=== PATIENT | female | born 1950 | race Caucasian/White ===

== ENCOUNTER → 2016-09-06 | Outpatient (CLI) | payer MEDICARE ==
--- NOTE | 2016-09-06 13:17 | MM ---
Reason for exam: screening (asymptomatic). Last mammogram was performed 1 year ago. History: Patient is postmenopausal. Taking progesterone for 2 years 6 months. Physical Findings: A clinical breast exam by your physician is recommended on an annual basis and results should be correlated with mammographic findings. MG Screening Mammo w CAD Bilateral CC and MLO view(s) were taken. Prior study comparison: September 01, 2015, bilateral MG 3d screening mammo w/cad. February 19, 2014, left breast MG work up mamm w CAD LT. The breast tissue is heterogeneously dense. This may lower the sensitivity of mammography. There is no discrete abnormality. No significant changes when compared with prior studies. ASSESSMENT: Negative, BI-RAD 1 RECOMMENDATION: Routine screening mammogram of both breasts in 1 year.
== END | disposition home or self-care (01) ==
LOC: RADMAMWWP 08:51
PROVIDERS: ATTEND Internal Medicine
DX: Z12.31 Encounter for screening mammogram for malignant neoplasm of breast (principal)

== ENCOUNTER → 2016-09-06 | Outpatient (CLI) | payer MEDICARE ==
--- NOTE | 2016-09-06 09:42 | US ---
EXAMINATION TYPE: US thyroid st tissue head/neck DATE OF EXAM: 09/06/2016 COMPARISON: 09/01/2015 CLINICAL HISTORY: E04.2 Nontoxic multinodular goiter, F/U. GLAND SIZE: Right Lobe: 4.3 x 1.4 x 1.3 cm Overall Parenchyma: homogenous Left Lobe: 4.1 x 1.0 x 1.5 cm Overall Parenchyma: homogeneous Isthmus Thickness: 0.3 cm NODULES RIGHT: # of nodules measured on right: 3 1. 1.0 X 0.6 x 0.8 cm isoechoic solid nodule at the mid pole with poorly defined margins. This nod ule is wider than tall and shows intranodular vascularity. Prior size: 1.0 x 0.8 x 0.5 cm 2. 0.3 X 0.2 x 0.3 cm hypoechoic solid nodule at the upper pole with well-defined margins. This nod ule is wider than tall and shows no intranodular vascularity. Prior size: 0.3 x 0.2 x 0.2 cm 3. 0.4 X 0.3 x 0.4 cm anechoic cystic nodule at the lower pole with well-defined margins. This nodu le is taller than wide and shows no intranodular vascularity. Prior size: 0.4 x 0.3 x 0.5 cm LEFT: # of nodules measured on left: 3 1. 0.5 X 0.3 x 0.3 cm isoechoic solid nodule at the upper pole with poorly defined margins. This n odule is wider than tall and shows no intranodular vascularity. Prior size: 0.4 x 0.3 x 0.3 cm 2. 0.4 X 0.3 x 0.3 cm isoechoic solid nodule at the mid pole with poorly defined margins. This nodu le is wider than tall and shows intranodular vascularity. Prior size: 0.5 x 0.3 x 0.5 cm 3. 0.4 X 0.3 x 0.4 cm hypoechoic solid nodule at the lower pole with well-defined margin. This nodu le is wider than tall and shows intranodular vascularity. Prior size: 0.4 x 0.3 x 0.3 cm ISTHMUS: # of nodules measured in the isthmus: 0 Bilateral neck scanned, no evidence of lymphadenopathy. IMPRESSION: 1. Stable multinodular goiter
== END | disposition home or self-care (01) ==
LOC: RADUSWWP 08:48
PROVIDERS: ATTEND Internal Medicine Endocrinology, Diabetes & Metabolism
DX: E04.2 Nontoxic multinodular goiter (principal)
CPT/HCPCS: 76536

== ENCOUNTER 2016-11-17 18:07 | Emergency (ER) | payer MEDICARE ==
[2016-11-17] MEDS ORDERED: DIPH,PERTUS(ACELL)TETVAC-LF 0.5 ML VIAL IM ONE (18:48)
[2016-11-17] MEDS ORDERED: TOPICAL SKIN ADHESIVE 1 EACH AMP TOPICAL ONE (18:48)
--- NOTE | 2016-11-17 18:52 | ED ---
Wound/Laceration HPI - General Chief Complaint: Wound/Laceration Stated Complaint: laceration on left thumb Time Seen by Provider: 11/17/16 18:27 Source: patient Mode of arrival: ambulatory Limitations: no limitations - History of Present Illness Initial Comments: 65-year-old female patient presented to emergency for evaluation of a laceration to the first DIP joint to the left hand. Patient states she was cutting branches with a handsaw when she asked [place] her thumb. She states she didn't clean it and apply a Band-Aid however it started bleeding shortly after. Injury occurred around 5:15 this afternoon. She denies any significant pain, numbness, or tingling to the thumb. She states her last tetanus vaccine was in 2010. She denies any other injuries or concerns. - Related Data Home Medications Medication Instructions Recorded Confirmed No Known Home Medications [No 02/26/15 02/26/15 Known Home Medications] Allergies Allergy/AdvReac Type Severity Reaction Status Date / Time Sulfa (Sulfonamide Allergy Unknown Verified 11/17/16 18:13 Antibiotics) Review of Systems ROS Statement: Those systems with pertinent positive or pertinent negative responses have been documented in the HPI. ROS Other: All systems not noted in ROS Statement are negative. Past Medical History Past Medical History: Thyroid Disorder History of Any Multi-Drug Resistant Organisms: None Reported Past Surgical History: Tonsillectomy Additional Past Surgical History / Comment(s): plastic sx Past Psychological History: No Psychological Hx Reported, Depression Smoking Status: Never smoker Past Alcohol Use History: Occasional Past Drug Use History: None Reported General Exam Limitations: no limitations General appearance: alert, in no apparent distress Respiratory exam: Present: normal lung sounds bilaterally. Absent: respiratory distress, wheezes, rales, rhonchi, stridor Cardiovascular Exam: Present: regular rate, normal rhythm, normal heart sounds. Absent: systolic murmur, diastolic murmur, rubs, gallop, clicks Extremities exam: Present: normal inspection, full ROM, normal capillary refill , other (1 cm laceration to the dorsal aspect of the left first digit over the DIP joint. Bleeding is controlled.). Absent: tenderness, pedal edema, joint swelling, calf tenderness Neurological exam: Present: alert, oriented X3, CN II-XII intact Psychiatric exam: Present: normal affect, normal mood Skin exam: Present: warm, dry, intact, normal color. Absent: rash Course Vital Signs 11/17/16 11/17/16 18:13 19:21 Temperature 97.9 F 97 F L Pulse Rate 92 87 Respiratory 16 18 Rate Blood Pressure 127/66 132/89 O2 Sat by Pulse 97 97 Oximetry Procedures - Laceration Laceration #1 Consent Obtained: verbal consent Time Out Performed: Yes Indication: laceration Site: other (Over the first DIP joint left hand.) Description: stellate Depth: simple, single layer Pre-repair: irrigated extensively Size of Sutures: other (Dermabond) Patient Tolerated Procedure: well, no complications Medical Decision Making - Medical Decision Making 65 year old female patient was at a for evaluation of a laceration to her left thumb. Physical exam did reveal a 1 cm laceration over the first DIP joint on the left hand. The area is quite small however as she may have difficulty with bending the thumb I will apply Dermabond and put her in a splint. Skin adhesive care instructions given. She is instructed to watch for signs or symptoms of infection. She is instructed to follow-up with her primary care physician for recheck in 1-2 days. She is instructed to return here immediately for any new, worsening, or concerning symptoms. Patient verbalizes understanding and agrees with this plan. Disposition Clinical Impression: Laceration Disposition: HOME SELF-CARE Condition: Good Instructions: Laceration (ED), Skin Adhesive Care (ED) Additional Instructions: Do not pick or pull at the glue. It is okay to wash her hands overdose scrubbed vigorously over the glued area. For signs or symptoms of infection including redness, swelling, drainage of pus, fever, or chills. Follow up with her primary care physician for recheck in 1-2 days. Return here immediately for any new, worsening, or concerning symptoms. Referrals: Keith Park MD [Primary Care Provider] - 1-2 days Time of Disposition: 19:09
[2016-11-17 19:22] VITALS: BP 132/89; PULSE 87; RESP 18; TEMP 97
== END 2016-11-17 19:22 | disposition home or self-care (01) ==
LOC: EC 18:07
DX: S61.012A Laceration without foreign body of left thumb without damage to nail, initial encounter (principal); Z88.2 Allergy status to sulfonamides; Z23 Encounter for immunization; W27.0XXA Contact with workbench tool, initial encounter; Y93.H2 Activity, gardening and landscaping
CPT/HCPCS: 12001; 90471; 90715; 99282

== ENCOUNTER 2016-12-20 21:59 | Emergency (ER) | payer MEDICARE ==
[2016-12-20 22:09] VITALS: TEMP 96.8
[2016-12-20] MEDS ORDERED: HYDROmorphone 1 MG/ML 1 ML SYRINGE IM STA (22:24)
[2016-12-20] MEDS ORDERED: DIAZEPAM 5 MG TAB PO STA (22:25)
--- NOTE | 2016-12-20 22:25 | ED ---
Back Pain HPI - General Chief Complaint: Back Pain/Injury Stated Complaint: back pain/arms tingling Time Seen by Provider: 12/20/16 22:11 Source: patient Limitations: no limitations - History of Present Illness Initial Comments: This is a 66-year-old female who presents to the emergency department with chief complaint of acute low back pain. Patient states that yesterday she was sitting on the bathroom floor while her grandson used the toilet. She reports she bent over and "felt something" in her lower right back but then felt fine. She states today she was carrying and lifting her grandson a lot and the pain returned this afternoon. She describes the pain as a constant dull ache. She reports that she has felt numbness and tingling in her hands. She states that she spent three hours in bed this afternoon with a heating pad to her right lower back. She reports she also took Advil PM. There was little relief with either of these. She states that prior to arrival, the pain became so bad that she asked her to bring her to the ED. She denies saddle paresthesias and loss of bladder or bowel function. She denies IV drug use. Denies fever, chills, chest pain, shortness of breath, abdominal pain, nausea or vomiting, constipation or diarrhea, dysuria or hematuria, headache or vision changes. - Related Data Previous Rx's Medication Instructions Recorded Diazepam [Valium] 5 mg PO BID #4 tab 12/20/16 HYDROcodone/APAP 5-325MG [Tarzan 5] 1 each PO Q6HR PRN #12 tab 12/20/16 methylPREDNISolone Dose Pack 4 mg PO DIRECTED #21 package 12/20/16 [Medrol Dose Pack] Allergies Allergy/AdvReac Type Severity Reaction Status Date / Time Sulfa (Sulfonamide Allergy Unknown Verified 12/20/16 22:09 Antibiotics) Review of Systems ROS Statement: Those systems with pertinent positive or pertinent negative responses have been documented in the HPI. ROS Other: All systems not noted in ROS Statement are negative. Past Medical History Past Medical History: Thyroid Disorder History of Any Multi-Drug Resistant Organisms: None Reported Past Surgical History: Tonsillectomy Additional Past Surgical History / Comment(s): plastic sx Past Psychological History: No Psychological Hx Reported, Depression Smoking Status: Never smoker Past Alcohol Use History: Occasional Past Drug Use History: None Reported General Exam - General Exam Comments Initial Comments: General: Awake and alert, well-developed; appears uncomfortable and anxious with hand pressed against her right low back. Hyperventilating during triage. is at bedside. HEENT: Head atraumatic, normocephalic. Pupils are equal, round and reactive to light. Extraocular movements intact. Oropharynx moist without erythema or exudate. Neck: Supple. Normal ROM. Cardiovascular: Regular rate and rhythm. No murmurs, rubs or gallops. Chest symmetrical. Respiratory: Lungs clear to auscultation bilaterally. No wheezes, rales or rhonchi. No use of accessory muscles. Audible breathing. Abdomen: Soft, nontender, non-distended. Bowel sounds present x 4 quadrants. Musculoskeletal: Tenderness on palpation of right lumbar paraspinous muscles. Right SI joint tenderness. No bony point vertebral tenderness. Normal range of motion, however pain is elicited with flexion. Sensation is intact. Radial and pedal pulses 2+ equal and palpable bilaterally. Skin: [place], warm and dry without rashes or lesions. Erythema overlying right lumbar region where patient placed heating pad for three continuous hours. Neurological: Alert and oriented x3. CN II-XII grossly intact. Speech is fluent and answers are appropriate. No focal neuro deficits. Psychiatric: Overtly anxious. Normal judgment. Limitations: no limitations Course Vital Signs 12/20/16 22:05 Temperature 96.8 F L Pulse Rate 73 Respiratory 25 H Rate Blood Pressure 141/88 O2 Sat by Pulse 100 Oximetry Medical Decision Making - Medical Decision Making This is a 66-year-old female who presents to the emergency department with chief complaint of acute back pain. This case was discussed in detail with Dr. Coleman, who also evaluated the patient. X-ray lumbar spine reveals scoliotic deformity and multilevel spondylosis, no fractures were noted. Patient was given low-dose Dilaudid and Valium while in the emergency department. She appears to be having a right lumbar muscle spasm. She is in no acute distress at this time and will be discharged home. She will receive a short course of Tarzan, steroids and Valium. She was recommended to follow up with her PCP in 1- 2 days. Patient is in agreement to the plan and voices understanding. All questions were answered. - Radiology Data Radiology results: report reviewed Lumbar spine x-ray findings: There is mild levoscoliosis. There is mild degenerative hypertrophic spurring throughout the lumbar spine. There is no compression fracture. Sacroiliac joints appear intact. Impression: Scoliotic deformity and multilevel spondylolysis. No fracture. Disposition Clinical Impression: Muscle spasm of back Disposition: HOME SELF-CARE Condition: Good Instructions: Acute Low Back Pain (ED), Muscle Spasm (ED) Additional Instructions: Please take medications as prescribed. Discontinue use of heating pad while resting or sleeping to prevent kapadia. Please follow up with primary care provider within 1-2 days. Return to emergency department if symptoms should worsen or any concerns arise. Prescriptions: Diazepam [Valium] 5 mg PO BID #4 tab HYDROcodone/APAP 5-325MG [Tarzan 5] 1 each PO Q6HR PRN #12 tab PRN Reason: Pain methylPREDNISolone Dose Pack [Medrol Dose Pack] 4 mg PO DIRECTED #21 package Referrals: Keith Park MD [Primary Care Provider] - 1-2 days Time of Disposition: 23:19
--- NOTE | 2016-12-20 22:41 | XR ---
EXAMINATION TYPE: XR lumbar spine 2 or 3V DATE OF EXAM: 12/20/2016 COMPARISON: NONE HISTORY: Back pain TECHNIQUE: 3 views FINDINGS: There is mild levoscoliosis. There is mild degenerative hypertrophic spurring throughout th e lumbar spine. There is no compression fracture. Sacroiliac joints appear intact. IMPRESSION: Scoliotic deformity and multilevel spondylosis. No fracture.
[2016-12-20 23:11] VITALS: BP 127/79; PULSE 68; RESP 22
== END 2016-12-20 23:23 | disposition home or self-care (01) ==
LOC: EC 21:59
DX: M62.830 Muscle spasm of back (principal); M47.816 Spondylosis without myelopathy or radiculopathy, lumbar region; M41.86 Other forms of scoliosis, lumbar region; R06.4 Hyperventilation; Z88.2 Allergy status to sulfonamides
CPT/HCPCS: 99284 ×2; 96372 ×2; 72100; J1170

== ENCOUNTER 2018-03-16 22:19 | Emergency (ER) | payer MEDICARE ==
[2018-03-16 23:01] VITALS: TEMP 97.6
--- NOTE | 2018-03-16 23:49 | XR ---
EXAMINATION TYPE: XR foot complete LT DATE OF EXAM: 03/16/2018 COMPARISON: NONE HISTORY: Great toe pain. Trauma. TECHNIQUE: 3 views FINDINGS: Metatarsals appear intact. I see no definite fracture nor dislocation. There are no erosion s. Joint spaces are normal. IMPRESSION: No fracture seen.
[2018-03-17] MEDS ORDERED: IBUPROFEN 600 MG STARTER PACK 4 TAB BTL PO STA (00:19)
--- NOTE | 2018-03-17 00:22 | ED ---
Lower Extremity Injury HPI - General Chief Complaint: Extremity Injury, Lower Stated Complaint: Toe injury Time Seen by Provider: 03/16/18 23:30 Source: patient Mode of arrival: ambulatory Limitations: no limitations - History of Present Illness Initial Comments: 67-year-old female patient presents to the emergency department today for evaluation of left great toe injury. Patient states that around 5 PM this afternoon a frozen 3 pound chicken fell out of the freezer and landed on her foot. Patient states she did have sudden intense pain however she continued throughout her day. States later in the evening which took her shoe off she noticed the toe was swollen and quite bruised so she presented here for further evaluation. Patient denies any numbness or tingling to the toe. Denies taking any medication for her symptoms. Denies any previous injury to the foot. Patient denies any headache, neck pain, back pain, chest pain, shortness of breath, dizziness, weakness, abdominal pain, nausea, vomiting, or difficulties with bowel movements or urination. - Related Data Previous Rx's Medication Instructions Recorded Diazepam [Valium] 5 mg PO BID #4 tab 12/20/16 HYDROcodone/APAP 5-325MG [Clospl[place] 5] 1 each PO Q6HR PRN #12 tab 12/20/16 methylPREDNISolone Dose Pack 4 mg PO DIRECTED #21 package 12/20/16 [Medrol Dose Pack] Ibuprofen [Motrin] 600 mg PO Q8HR PRN #30 tab 03/17/18 Allergies Allergy/AdvReac Type Severity Reaction Status Date / Time Sulfa (Sulfonamide Allergy Unknown Verified 03/16/18 23:01 Antibiotics) Review of Systems ROS Statement: Those systems with pertinent positive or pertinent negative responses have been documented in the HPI. ROS Other: All systems not noted in ROS Statement are negative. Past Medical History Past Medical History: Thyroid Disorder History of Any Multi-Drug Resistant Organisms: None Reported Past Surgical History: Tonsillectomy Additional Past Surgical History / Comment(s): plastic sx Past Psychological History: No Psychological Hx Reported Smoking Status: Never smoker Past Alcohol Use History: Occasional Past Drug Use History: None Reported General Exam Limitations: no limitations General appearance: alert, in no apparent distress, other (This is a well- developed, well-nourished adult female patient in no acute distress. Vital signs upon presentation are temperature 97.6F, pulse 74, respirations 18, blood pressure 149/74, pulse ox 98% on room air.) Eye exam: Present: normal appearance, PERRL, EOMI. Absent: scleral icterus, conjunctival injection, periorbital swelling ENT exam: Present: normal exam, normal oropharynx, mucous membranes moist Respiratory exam: Present: normal lung sounds bilaterally. Absent: respiratory distress, wheezes, rales, rhonchi, stridor Cardiovascular Exam: Present: regular rate, normal rhythm, normal heart sounds. Absent: systolic murmur, diastolic murmur, rubs, gallop, clicks Extremities exam: Present: full ROM, tenderness (Tenderness over the left great toe), normal capillary refill, other (Has generalized swelling, ecchymosis noted over the left great toe. No evidence of subungual hematoma. Skin is otherwise pink, warm, and dry. Cap refills less than 3 seconds. Pedal pulses 2 + and equal bilaterally.). Absent: normal inspection, pedal edema, joint swelling, calf tenderness Neurological exam: Present: alert, oriented X3, CN II-XII intact Psychiatric exam: Present: normal affect, normal mood Skin exam: Present: warm, dry, intact, normal color. Absent: rash Course Vital Signs 03/16/18 03/17/18 22:56 00:45 Temperature 97.6 F Pulse Rate 74 70 Respiratory 18 16 Rate Blood Pressure 149/74 124/95 O2 Sat by Pulse 98 99 Oximetry Medical Decision Making - Medical Decision Making 67-year-old female patient presents the emergency department today for evaluation of left great toe injury. Physical examination does reveal generalized swelling and ecchymosis over the left great toe. Neurovascular status is intact. X-rays negative for any acute fracture. Patient be discharged home with prescription for ibuprofen. She is educated regarding rest , ice, elevation. She was given a postop shoe for ambulation. She is instructed to follow-up with her primary care physician for recheck in 1-2 days. Instructed to have repeat x-rays performed in 7-10 days if pain symptoms persist. Return parameters were discussed in detail. She verbalizes understanding and agrees with this plan. - Radiology Data Radiology results: report reviewed, image reviewed 3 views of the left foot are obtained. Report was reviewed in its entirety. Impression by Dr. Jackson shows no fracture seen. Disposition Clinical Impression: Contusion of left great toe without damage to nail Disposition: HOME SELF-CARE Condition: Good Instructions: Foot Contusion (ED), R.I.C.E. Treatment (ED) Additional Instructions: Rest, ice, elevate the foot. Use postop shoe as needed for comfort and support. Follow-up with your primary care physician for recheck in 1-2 days. Have repeat x-rays performed in 7-10 days if pain symptoms persist. Return to the emergency department immediately for any new, worsening, or concerning symptoms. Prescriptions: Ibuprofen [Motrin] 600 mg PO Q8HR PRN #30 tab PRN Reason: Pain Is patient prescribed a controlled substance at d/c from ED?: No Referrals: None,Stated [Primary Care Provider] - 1-2 days Time of Disposition: 00:22
[2018-03-17 00:51] VITALS: BP 124/95; PULSE 70; RESP 16
== END 2018-03-17 00:45 | disposition home or self-care (01) ==
LOC: EC 22:19
DX: S90.112A Contusion of left great toe without damage to nail, initial encounter (principal); Z88.2 Allergy status to sulfonamides; W20.8XXA Other cause of strike by thrown, projected or falling object, initial encounter
CPT/HCPCS: 99283

== ENCOUNTER → 2018-06-26 | Outpatient (CLI) | payer MEDICARE ==
--- NOTE | 2018-06-27 09:07 | US ---
EXAMINATION TYPE: US thyroid st tissue head/neck DATE OF EXAM: 06/26/2018 COMPARISON: 09/06/2016 CLINICAL HISTORY: 67-year-old female E04.2 Nontoxic multinodular goiter. Follow up thyroid nodules TECHNIQUE: Multiple sonographic images of the thyroid gland are obtained. FINDINGS: GLAND SIZE: Right Lobe: 3.9 x 1.6 x 1.5 cm Overall Parenchyma: homogenous Left Lobe: 3.9 x 1.2 x 1.3 cm Overall Parenchyma: homogeneous Isthmus Thickness: 0.3 cm NODULES RIGHT: # of nodules measured on right: 1 1. 1.1 X 0.7 x 0.8 cm heterogeneous isoechoic solid nodule at the mid pole. This nodule is wider th an tall and shows intranodular vascularity. Prior size: 1.0 x 0.6 x 0.8 cm LEFT: # of nodules measured on left: 0 ISTHMUS: # of nodules measured in the isthmus: 0 Bilateral neck scanned, prominent but nonenlarged lymph node right neck measuring 8 mm short axis. Multiple sub-centimeter nodules noted bilaterally, largest on the right measured IMPRESSION: 1. Solitary, solid right thyroid lobe nodule is stable to a couple millimeters larger at 11 x 7 x 8 m m (versus 10 x 6 x 8 mm, previously). 2. Prominent but nonenlarged right lateral cervical lymph node measuring 8 mm short axis.
== END | disposition home or self-care (01) ==
LOC: RADUSWWP 15:48
PROVIDERS: ATTEND Internal Medicine Endocrinology, Diabetes & Metabolism
DX: E04.2 Nontoxic multinodular goiter (principal)
CPT/HCPCS: 76536

== ENCOUNTER 2018-10-16 18:20 | Emergency (ER) | payer MEDICARE ==
[2018-10-16 18:35] VITALS: RESP 18
[2018-10-16] MEDS ORDERED: SODIUM CHLORIDE 0.9% 1,000 ML IV STA (19:10)
--- NOTE | 2018-10-16 20:50 | XR ---
EXAMINATION TYPE: XR ribs RT w pa chest xray DATE OF EXAM: 10/16/2018 COMPARISON: NONE HISTORY: Fall. Right-sided chest pain TECHNIQUE: 3 views FINDINGS: Heart and mediastinum are normal. Lungs are clear of infiltrate. There is no pleural effusi on or pneumothorax. There are chest leads. The right ribs appear intact. IMPRESSION: Normal chest. Normal right ribs.
[2018-10-16 20:51] LABS: ALT 24 U/L (9-52); AST 21 U/L (14-36); African American GFR (CKD) >90 (>60 ml/min/1.73 sqM); Albumin 3.9 g/dL (3.5-5.0); Alkaline Phosphatase 79 U/L (38-126); Anion Gap 7 mmol/L; Blood Urea Nitrogen 20 mg/dL (7-17); Calcium 9.2 mg/dL (8.4-10.2); Carbon Dioxide 23 mmol/L (22-30); Chloride 107 mmol/L (98-107); Glucose 105 mg/dL (74-99); Potassium 4.2 mmol/L (3.5-5.1); Sodium 137 mmol/L (137-145); Total Bilirubin 0.2 mg/dL (0.2-1.3); Total Protein 6.3 g/dL (6.3-8.2)
[2018-10-16 21:01] LABS: Basophils # (A) 0.1 k/uL (0-0.2); Basophils % (A) 1 %; Eosinophils # (A) 0.3 k/uL (0-0.7); Eosinophils % (A) 3 %; HCT 36.2 % (34.0-46.0); HGB 12.5 gm/dL (11.4-16.0); Lymphocytes # (A) 1.6 k/uL (1.0-4.8); Lymphocytes % (A) 15 %; MCH 31.5 pg (25.0-35.0); MCHC 34.5 g/dL (31.0-37.0); MCV 91.3 fL (80.0-100.0); Mean Platelet Volume 6.9; Monocytes # (A) 0.4 k/uL (0-1.0); Monocytes % (A) 4 %; Neutrophils # (A) 7.8 k/uL (1.3-7.7); Neutrophils % (A) 76 %; Platelet Count 265 k/uL (150-450); RBC 3.96 m/uL (3.80-5.40); RDW 14.4 % (11.5-15.5); WBC 10.3 k/uL (3.8-10.6)
--- NOTE | 2018-10-16 21:03 | CT ---
EXAMINATION TYPE: CT brain wo con DATE OF EXAM: 10/16/2018 COMPARISON: None HISTORY: Syncope CT DLP: 1129.4 mGycm Automated exposure control for dose reduction was used. FINDINGS: There is mild cerebral atrophy. There is no mass effect nor midline shift. There is no sign of intrac ranial hemorrhage. There is mild hypodensity in the white matter around the frontal horns of the late ral ventricles. Calvarium is intact. IMPRESSION: MILD ATROPHY AND CHRONIC SMALL VESSEL ISCHEMIA. NO ACUTE INTRACRANIAL ABNORMALITY.
--- NOTE | 2018-10-16 21:14 | ED ---
Syncope HPI - General Chief Complaint: Syncope Stated Complaint: Syncope Time Seen by Provider: 10/16/18 18:57 Source: patient Mode of arrival: ambulatory Limitations: no limitations - History of Present Illness Initial Comments: Patient is a 67-year-old female presenting to the emergency Department with complaints of syncope. Patient states she gave blood today, drank a bottle of water and had some crackers before she left. Patient states she walked about 5 minutes back to her house and felt fine. Patient states she was getting food ready for her dog when she started to feel lightheaded and then the next thing she knew she woke up on the ground. Patient is reporting right rib pain as well as pain with palpation on her right congregational. Patient states she is unsure of what she hit. Patient denies being on blood thinners. No other complaints at this time. - Related Data Previous Rx's Medication Instructions Recorded Diazepam [Valium] 5 mg PO BID #4 tab 12/20/16 HYDROcodone/APAP 5-325MG [[place] 5] 1 each PO Q6HR PRN #12 tab 12/20/16 methylPREDNISolone Dose Pack 4 mg PO DIRECTED #21 package 12/20/16 [Medrol Dose Pack] Ibuprofen [Motrin] 600 mg PO Q8HR PRN #30 tab 03/17/18 Allergies Allergy/AdvReac Type Severity Reaction Status Date / Time Sulfa (Sulfonamide Allergy Unknown Verified 10/16/18 18:35 Antibiotics) Review of Systems ROS Statement: Those systems with pertinent positive or pertinent negative responses have been documented in the HPI. ROS Other: All systems not noted in ROS Statement are negative. Past Medical History Past Medical History: Thyroid Disorder History of Any Multi-Drug Resistant Organisms: None Reported Past Surgical History: Tonsillectomy Additional Past Surgical History / Comment(s): plastic sx , eye Past Psychological History: No Psychological Hx Reported Smoking Status: Never smoker Past Alcohol Use History: Occasional Past Drug Use History: None Reported General Exam - General Exam Comments Initial Comments: GENERAL: Well-appearing, well-nourished and in no acute distress. HEAD: Atraumatic, normocephalic. Tender to palpation of the right congregational area. EYES: Pupils equal round and reactive to light, extraocular movements intact, sclera anicteric, conjunctiva are normal. ENT: TMs normal, nares patent, oropharynx clear without exudates. Moist mucous membranes. NECK: Normal range of motion, supple without lymphadenopathy or JVD. LUNGS: Breath sounds clear to auscultation bilaterally and equal. No wheezes rales or rhonchi. HEART: Regular rate and rhythm without murmurs, rubs or gallops. ABDOMEN: Soft, nontender, normoactive bowel sounds. No guarding, no rebound. No masses appreciated. Tender to palpation of the anterior right rib cage. : Deferred EXTREMITIES: Normal range of motion, no pitting or edema. No clubbing or cyanosis. NEUROLOGICAL: Cranial nerves II through XII grossly intact. Normal speech, normal gait. PSYCH: Normal mood, normal affect. SKIN: Warm, Dry, normal turgor, no rashes or lesions noted. Limitations: no limitations Course Vital Signs 10/16/18 10/16/18 10/16/18 18:31 20:30 21:00 Temperature 98.5 F Pulse Rate 89 78 74 Respiratory 18 Rate Blood Pressure 98/63 118/73 123/76 O2 Sat by Pulse 99 96 Oximetry 10/16/18 21:53 Temperature 97.8 F Pulse Rate 76 Respiratory 18 Rate Blood Pressure 127/71 O2 Sat by Pulse 95 Oximetry EKG Findings - EKG Comments: EKG Findings:: Ventricular rate 80, WI interval 132, QTC 461. Normal sinus rhythm. No ST segment changes. Medical Decision Making - Medical Decision Making Patient is a 67-year-old female with complaints of syncope. Patient gave blood earlier today, hydrated after and walked about 5 minutes to her house. Patient was doing chores around her house when the next and she knew she woke up on the ground. Patient is claiming of right rib pain and pain in the right temporal area. Patient denies being on blood thinners. Since vital signs are stable, afebrile. Patient's CBC, CMP are within normal limits. UA is normal. Brain CT shows no acute process. Chest x-ray and rib x-ray showed no acute fractures. Patient syncope most likely related to dehydration. Case discussed with Dr. Austin. Patient is stable for discharge and she is in agreement with this plan. Return parameters were discussed with the patient she verbalized understanding. - Lab Data Result diagrams: 10/16/18 20:15 10/16/18 20:15 Lab Results 10/16/18 10/16/18 10/16/18 Range/Units 20:15 20:15 21:27 WBC 10.3 (3.8-10.6) k/uL RBC 3.96 (3.80-5.40) m/uL Hgb 12.5 (11.4-16.0) gm/dL Hct 36.2 (34.0-46.0) % MCV 91.3 (80.0-100.0) fL MCH 31.5 (25.0-35.0) pg MCHC 34.5 (31.0-37.0) g/dL RDW 14.4 (11.5-15.5) % Plt Count 265 (150-450) k/uL Neutrophils % 76 % Lymphocytes % 15 % Monocytes % 4 % Eosinophils % 3 % Basophils % 1 % Neutrophils # 7.8 H (1.3-7.7) k/uL Lymphocytes # 1.6 (1.0-4.8) k/uL Monocytes # 0.4 (0-1.0) k/uL Eosinophils # 0.3 (0-0.7) k/uL Basophils # 0.1 (0-0.2) k/uL Sodium 137 (137-145) mmol/L Potassium 4.2 (3.5-5.1) mmol/L Chloride 107 (98-107) mmol/L Carbon Dioxide 23 (22-30) mmol/L Anion Gap 7 mmol/L BUN 20 H (7-17) mg/dL Creatinine 0.67 (0.52-1.04) mg/dL Est GFR (CKD-EPI)AfAm >90 (>60 ml/min/1.73 sqM) Est GFR (CKD-EPI)NonAf >90 (>60 ml/min/1.73 sqM) Glucose 105 H (74-99) mg/dL Calcium 9.2 (8.4-10.2) mg/dL Total Bilirubin 0.2 (0.2-1.3) mg/dL AST 21 (14-36) U/L ALT 24 (9-52) U/L Alkaline Phosphatase 79 (38-126) U/L Total Protein 6.3 (6.3-8.2) g/dL Albumin 3.9 (3.5-5.0) g/dL Urine Color Yellow Urine Appearance Clear (Clear) Urine pH 7.0 (5.0-8.0) Ur Specific [place] 1.029 (1.001-1.035) Urine Protein Negative (Negative) Urine Glucose (UA) Negative (Negative) Urine Ketones 1+ H (Negative) Urine Blood Negative (Negative) Urine Nitrite Negative (Negative) Urine Bilirubin Negative (Negative) Urine Urobilinogen <2.0 (<2.0) mg/dL Ur Leukocyte Esterase Small H (Negative) Urine RBC <1 (0-5) /hpf Urine WBC 4 (0-5) /hpf Ur Squamous Epith Cells <1 (0-4) /hpf Disposition Clinical Impression: Syncope Disposition: HOME SELF-CARE Condition: Stable Instructions (If sedation given, give patient instructions): Syncope (ED) Additional Instructions: Please return to the Emergency Department if symptoms worsen or any other concerns. Is patient prescribed a controlled substance at d/c from ED?: No Referrals: Kendell Moon MD [Primary Care Provider] - 1-2 days
[2018-10-16 21:42] LABS: Appearance,Urine Clear (Clear); Bilirubin,Urine Negative (Negative); Blood,Urine Negative (Negative); Color,Urine Yellow; Glucose,Urine (UA) Negative (Negative); Ketones,Urine 1+ (Negative); Leukocyte Esterase,Urine Small (Negative); Nitrite,Urine Negative (Negative); Protein,Urine Negative (Negative); RBC,Urine <1 /hpf (0-5); Specific Gravity,Urine 1.029 (1.001-1.035); Squamous Epithelial Cell,Urine <1 /hpf (0-4); Urobilinogen,Urine <2.0 mg/dL (<2.0)
[2018-10-16 21:55] VITALS: BP 127/71; PULSE 76; TEMP 97.8
== END 2018-10-16 21:55 | disposition home or self-care (01) ==
LOC: EC 18:20
DX: R55 Syncope and collapse (principal); R07.81 Pleurodynia; R51 Headache; Z88.2 Allergy status to sulfonamides
CPT/HCPCS: 36415; 70450; 80053; 81001; 85025; 93005; 99284

== ENCOUNTER → 2019-10-09 | Outpatient (CLI) | payer MEDICARE ==
--- NOTE | 2019-10-09 09:40 | US ---
EXAMINATION TYPE: US thyroid st tissue head/neck DATE OF EXAM: 10/09/2019 COMPARISON: Thyroid ultrasound June 26, 2018 CLINICAL HISTORY: E04.1 single thyroid nodule. single thyroid nodule GLAND SIZE: Right Lobe: 4.2 x 1.6 x 1.7 cm Overall Parenchyma: homogenous Left Lobe: 4.0 x 1.3 x 1.4 cm Overall Parenchyma: homogeneous Isthmus Thickness: 0.3 cm NODULES RIGHT: # of nodules measured on right: 1 1. 1.0 X 0.5 x 0.8 cm heterogenous isoechoic solid nodule at the mid pole . This nodule is wider t isbell tall and shows intranodular vascularity. Prior size: 1.1 x 0.7 x 0.8 cm LEFT: # of nodules measured on left: 0 ISTHMUS: # of nodules measured in the isthmus: 0 Bilateral neck scanned, normal appearing lymph node right neck as on prior exam Homogeneous somewhat small size thyroid with stable 1.0 cm right thyroid colloid nodule. IMPRESSION: As above. No new greater than 1 cm nodule identified.
== END | disposition home or self-care (01) ==
LOC: RADUSWWP 08:57
PROVIDERS: ATTEND Family Medicine
DX: E04.1 Nontoxic single thyroid nodule (principal)
CPT/HCPCS: 76536